=== PATIENT | male | born 1940 | race Hispanic/Latino ===

== ENCOUNTER 2017-10-19 12:19 | Day surgery (SDC) | payer MEDICARE ==
--- NOTE | 2017-10-17 15:49 | EKG ---
Test Date: 2017-10-17 Test Time: 14:45:35 Public Address System Operator: MEG MEASUREMENT RESULTS: Intervals: Rate: 47 [place]: 226 QRSD: 116 QT: 442 QTc: 391 [place]: P: 46 [place]: 226 QRS: -28 T: 54 INTERPRETIVE STATEMENTS: Marked sinus bradycardia with 1st degree AV block Left ventricular hypertrophy with QRS widening Nonspecific T wave abnormality Abnormal ECG Compared to ECG 01/09/2011 09:23:54 Ventricular premature complex(es) no longer present Left-axis deviation no longer present T-wave abnormality still present Electronically Signed On 10-17-17 15:48:41 CDT by Fortunato Fung
[2017-10-19] MEDS ORDERED: BOTU TOX TYPE A 100 UNIT/VIAL ID ONE (12:20)
[2017-10-19] MEDS ORDERED: NA CHLORIDE 0.9% 1,000 ML ONE (12:49)
[2017-10-19] MEDS ORDERED: MIDAZOLAM HCL 2 MG/2 ML INJ ONE (12:49)
[2017-10-19] MEDS ORDERED: LIDOCAINE 1% MPF 5 ML VIAL ONE (12:49)
[2017-10-19] MEDS ORDERED: FENTANYL CITR 100 MCG/2 ML ONE (12:49)
[2017-10-19] MEDS ORDERED: PROPOFOL 200 MG/20 ML VIAL IV ONE (12:49)
[2017-10-19] MEDS ORDERED: EPINEPHRINE/PF 1 MG/ML AMP ONE (13:31)
[2017-10-19] MEDS ORDERED: LIDOCAINE 1% W/EPI 1:100,000 MDV 50 ML VIAL ONE (13:31)
[2017-10-19] MEDS ORDERED: OXYMETAZOLINE HCL 0.05% 30ML NAS ONE (13:56)
[2017-10-19] MEDS ORDERED: ROCURONIUM 50 MG/5 ML VIAL IV ONE (14:37)
[2017-10-19] MEDS ORDERED: NS 0.9% VIAL 10 ML ONE (14:50)
[2017-10-19] MEDS ORDERED: SUCCINYLCHOLINE 20 MG/ML (10 ML) IV ONE (15:09)
--- NOTE | 2017-10-19 18:06 | P.BOP ---
Preoperative diagnosis: Cp spasm, dysphasia Postoperative diagnosis: same Primary procedure: Esophagoscopy with injection of Botox Portfolio Administrator: NONE,NONE Estimated blood loss: nil Specimen: none Anesthesia: General Complications: None Transferred to: Recovery Room Condition: Good
--- NOTE | 2017-10-20 00:45 | OP ---
Date of Procedure: 10/19/2017 Surgeon: Crystal Chambers MD Preoperative Diagnosis: Dysphagia, cricopharyngeal spasm. Postoperative Diagnosis: Dysphagia, cricopharyngeal spasm. Procedure: Rigid esophagoscopy with injection of botulinum toxin to the cricopharyngeus muscle. Indication For Procedure: Mr. Wood is a 77-year-old who presented with difficulty swallowing, which was worse with solids, especially meat and corn tortillas, which has been persistent over the last 3 years. He has a history of a procedure with the GI, but the details were not available, and the patient was referred to ENT for. Swallow study was ordered and showed suspicion for cricopharyngeal spasm. The risks, benefits, and alternatives to the procedure were discussed with the patient who agreed to proceed. Description Of Procedure: The patient was brought to the operating room. He was placed under general anesthesia via oral endotracheal tube. A tooth guard was placed and the oral cavity was inspected. He had multiple caps on his mandibular teeth and his mandible was edentulous. A tooth guard was placed and a Alejandro-Berci laryngoscope was used to perform a laryngoscopy. The length of the laryngoscope was insufficient to reach the area of the cricopharyngeus and this was exchanged for a rigid cervical eosphagoscope. The eosphagoscope was carefully passed under direct visualization into the esophagus. There were copious secretions in the esophagus, which were suctioned and the eosphagoscope was slowly withdrawn examining the esophageal mucosa, which was moderately irritated in appearance. The eosphagoscope was withdrawn and the botulinum toxin was diluted in the following manner: 100 unit vial of onabotulinum toxin A lot number [id number]. Expiration date 04/2020 was diluted with 1.4 mL of sterile saline yielding a dilution of 7 units per 0.1 mL. Then, 1 mL of the solution was drawn up in a 1 cc syringe and attached to cystoscopy, a Gurinder Cystologic injection catheter. The lumen of the needle was filled with 0.4 mL of the solution. The eosphagoscope was again passed through the patient's mouth and into the esophageal introitus under direct visualization. The prominent cricopharyngeus muscle was identified. The needle was placed in the 6 o'clock position and 0.1 mL were injected into the submucosal tissues. The needle was then repositioned and additional injections were given at 5 and 7 o'clock positions. The needle was then withdrawn. There was minimal bleeding noted. The eosphagoscope was withdrawn. The tooth guard was removed, and the patient was returned to care of Anesthesia for awakening and extubation in the operating room, which proceeded without difficulty. Complications: None. Postoperative Plan: The patient will be discharged home later today in the care of his family and follow up with Dr. Chambers in approximately 1-2 weeks for re-evaluation. SARA Voice ID: [id number] Report ID: [id number] ANGELA
== END 2017-10-19 16:45 | disposition home or self-care (01) ==
LOC: OR 12:19
PROVIDERS: ATTEND Otolaryngology
PROC: 3E0G8GC Introduction of Other Therapeutic Substance into Upper GI, Via Natural or Artificial Opening Endoscopic (ICD-10-PCS; principal; 2017-10-19 13:30)
DX: R13.10 Dysphagia, unspecified (principal); J39.2 Other diseases of pharynx; I10 Essential (primary) hypertension; E11.9 Type 2 diabetes mellitus without complications; E07.9 Disorder of thyroid, unspecified
CPT/HCPCS: 43192; 82962 ×2; 93005; J0330; J0585; J2250; J3010; J7030; J0171

== ENCOUNTER 2017-10-26 | Emergency (ER) | payer MEDICARE ==
--- OUTSIDE RECORDS SUMMARY | 2017-10-26 14:56 | XMS REPORT ---
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 lumbosacral intervertebral disc Problem Diabetes E11.9 Active Problem Benign essential HTN I10 Active Problem Controlled type 2 diabetes mellitus E11.9 Active without complication, without long-term current use of insulin Problem Cataract H26.9 Active Problem DJD (degenerative joint disease) M19.90 Active Problem Sexual dysfunction R37 Active Problem Fatty liver K76.0 Active Problem Benign esophageal stricture K22.2 Active Problem Annual physical exam Z00.00 Active Problem Abnormal barium swallow R93.3 Active Problem 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
--- NOTE | 2017-10-26 16:31 | EDPHYS ---
Physician Documentation [facility] Name: Maxim Wood Age: 77 yrs Sex: Male : 1940 Arrival Date: 10/26/2017 Time: 14:59 Bed DIS1 Private MD: ED Physician Tom Drake HPI: 10/26 16:05 This 77 yrs old Male presents to ER via Wheelchair with complaints of wa Difficulty Swallowing. 16:05 The patient presents with dysphagia, of solids, of both solids and liquids, c/o wa difficulty swallowing x 8 days. had a procedure 3 days ago by ENT faviola Chambers but now worse. had swallow study today. sent to ED due to abnml study for further eval. Onset: The symptoms/episode began/occurred 8 day(s) ago. Severity of symptoms: At their worst the symptoms were moderate, in the emergency department the symptoms are unchanged. Associated signs and symptoms: The patient has no apparent associated signs or symptoms. The patient has not experienced similar symptoms in the past. The patient has been recently seen by a physician: Dr. Chambers. Historical: - Allergies: 15:12 No Known Allergies; la1 - PMHx: 15:12 Diabetes - NIDDM; Hypertension; High Cholesterol; la1 - Immunization history:: Adult Immunizations up to date. - Social history:: Smoking status: Patient/guardian denies using tobacco. - Family history:: not pertinent. - Hospitalizations: : No recent hospitalization is reported. - History obtained from: daughter. ROS: 16:20 Constitutional: Negative for fever, chills, and weight loss, Eyes: Negative for injury, wa pain, redness, and discharge, Neck: Negative for injury, pain, and swelling, Cardiovascular: Negative for chest pain, palpitations, and edema, Respiratory: Negative for shortness of breath, cough, wheezing, and pleuritic chest pain, Abdomen/GI: Negative for abdominal pain, nausea, vomiting, diarrhea, and constipation, Back: Negative for injury and pain, : Negative for injury, bleeding, discharge, and swelling, MS/Extremity: Negative for injury and deformity, Skin: Negative for injury, rash, and discoloration, Neuro: Negative for headache, weakness, numbness, tingling, and seizure. 16:20 ENT: Positive for difficulty swallowing. 16:20 All other systems are negative. Exam: 16:21 Constitutional: This is a well developed, well nourished patient who is awake, alert, wa and in no acute distress. Head/Face: Normocephalic, atraumatic. Eyes: Pupils equal round and reactive to light, extra-ocular motions intact. Lids and lashes normal. Conjunctiva and sclera are non-icteric and not injected. Cornea within normal limits. Periorbital areas with no swelling, redness, or edema. Neck: Trachea midline, no thyromegaly or masses palpated, and no cervical lymphadenopathy. Supple, full range of motion without nuchal rigidity, or vertebral point tenderness. No Meningismus. Cardiovascular: Regular rate and rhythm with a normal S1 and S2. No gallops, murmurs, or rubs. Normal PMI, no JVD. No pulse deficits. Respiratory: Lungs have equal breath sounds bilaterally, clear to auscultation and percussion. No rales, rhonchi or wheezes noted. No increased work of breathing, no retractions or nasal flaring. Abdomen/GI: Soft, non-tender, with normal bowel sounds. No distension or tympany. No guarding or rebound. No evidence of tenderness throughout. Back: No spinal tenderness. No costovertebral tenderness. Full range of motion. Skin: Warm, dry with normal turgor. Normal color with no rashes, no lesions, and no evidence of cellulitis. MS/ Extremity: Pulses equal, no cyanosis. Neurovascular intact. Full, normal range of motion. Neuro: Awake and alert, GCS 15, oriented to person, place, time, and situation. Cranial nerves II-XII grossly intact. Motor strength 5/5 in all extremities. Sensory grossly intact. Cerebellar exam normal. Normal gait. 16:26 ENT: Mouth: is normal, Posterior pharynx: is normal. oh Vital Signs: 15:12 BP 155 / 77; Pulse 62; Resp 16; Temp 98.6(O); Pulse Ox 100% on R/A; Weight 77.11 kg (R);la1 MDM: 15:13 Patient medically screened. oh 16:26 Differential diagnosis: dysphagia. swallow study shows significantly reduced opening of wa the upper esophageal sphincter with decrease epiglottic inversion. 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 Data reviewed: vital signs, nurses notes. Special discussion: Dr. Chambers saw pt in ED. offered pt and family a feeding tube. pt and family adamantly refused. they stated they want to go see Dr. Copeland (GI) for second opinion. Discussed return for worsening symptom immediately. pt was able to swallow water in ED on my assessment, although with mild difficulty. Administered Medications: No medications were administered Disposition: 10/26/17 16:31 Discharged to Home. Impression: Dysphagia. - Condition is Stable. - Discharge Instructions: Dysphagia. - Medication Reconciliation Form, Thank You Letter, Antibiotic Education, Prescription Opioid Use form. - Follow up: Festus Quinteros MD; When: 1 - 2 days; Reason: Recheck today's complaints. Follow up: Crystal Chambers MD; When: 1 - 2 days; Reason: Recheck today's complaints. - Notes: follow up with Dr. Chambers and Dr. Copeland as discussed. please thin his meals considerably to help him get it down. return immediately for worsening, including complete inability to swallow Signatures: Marlyn Fairchild, RN RN iw Benjie Mcdaniel RN RN la1 Tom Drake MD MD wa
--- NOTE | 2017-10-26 16:31 | ER ---
Nurse's Notes [facility] Name: Maxim Wood Age: 77 yrs Sex: Male : 1940 Arrival Date: 10/26/2017 Time: 14:59 Bed DIS1 Private MD: Diagnosis: Dysphagia Presentation: 10/26 15:10 Presenting complaint: Child states: He has been having trouble swallowing for around 2 la1 years, on Sunday he had botox in the back of his throat from Dr Chambers and today he had a F/U swallow screen and the person who did the test said he was not swallowing at all and he was at risk of getting food in his lungs. Transition of care: patient was not received from another setting of care. Onset of symptoms was October 26, 2017. Care prior to arrival: None. 15:10 Method Of Arrival: Wheelchair la1 15:10 Acuity: ANALIA 3 la1 Historical: - Allergies: 15:12 No Known Allergies; la1 - PMHx: 15:12 Diabetes - NIDDM; Hypertension; High Cholesterol; la1 - Immunization history:: Adult Immunizations up to date. - Social history:: Smoking status: Patient/guardian denies using tobacco. - Family history:: not pertinent. - Hospitalizations: : No recent hospitalization is reported. - History obtained from: daughter. Screenin:12 Abuse screen: Denies threats or abuse. Denies injuries from another. Nutritional sv screening: No deficits noted. Tuberculosis screening: No symptoms or risk factors identified. Fall Risk None identified. Assessment: 15:12 General: Appears in no apparent distress. comfortable, Behavior is calm, cooperative, sv appropriate for age. Pain: Denies pain. Neuro: Level of Consciousness is awake, alert, obeys commands, Oriented to person, place, time, situation, Moves all extremities. Full function. Respiratory: Respiratory effort is even, unlabored, Respiratory pattern is regular, symmetrical. EENT: Parent/caregiver reports the patient having difficulty swallowing. Derm: Skin is normal. 15:31 Reassessment: Dr. Chambers notified via telephone, speaking with Dr. Drake. iw Vital Signs: 15:12 BP 155 / 77; Pulse 62; Resp 16; Temp 98.6(O); Pulse Ox 100% on R/A; Weight 77.11 kg (R);la1 ED Course: 14:59 Patient arrived in ED. mr 15:12 Triage completed. la1 15:12 Arm band placed on left wrist. la1 15:12 Patient has correct armband on for positive identification. Bed in low position. Call sv light in reach. Adult w/ patient. 15:13 Tom Drake MD is Attending Physician. wa 15:45 Crystal Liang, CRUZ is Primary Nurse. sv 16:30 Festus Quinteros MD is Referral Physician. wa 16:30 Crystal Chambers MD is Referral Physician. wa 16:36 No provider procedures requiring assistance completed. Patient did not have IV access sv during this emergency room visit. Administered Medications: No medications were administered Outcome: 16:31 Discharge ordered by . 16:31 Discharged to home pt left before discharge paperwork sv 16:36 Patient left the ED. iw Signatures: Crystal Liang, Shereen Lux RN Marlyn Fairchild RN RN Benjie Mcdaniel RN RN [facility] Tom Drake MD MD id
--- NOTE | 2017-11-03 21:07 | CON ---
Date of Consultation: 10/26/2017 Chief Complaint: Difficulty swallowing. History Of Present Illness: Mr. Wood is a 77-year-old male known to me through my outpatient pract ice. He has a greater than 3-year history of dysphagia and approximately 1 week prior to this presen tation, he underwent esophagoscopy with injection of Botox to the cricopharyngeus muscle. He continu ed to have dysphagia, which was felt by the family to be worsening and presented to the clinic where an urgent modified barium swallow was ordered. The modified barium swallow was performed by the [facility] pathologist Ms. Dalia Becker earlier on the and I spoke with her regarding the results with i ntent to contact the patient and his family. Before I was able to do so due to other clinical respon sibilities, the patient presented to the emergency room with his daughters and I was consulted by the emergency room physician to address the patient's dysphagia. The patient and his family report that he has continued to have difficulty swallowing, which has been severe in nature, although he was not ed by the emergency room staff to tolerate sips of water without coughing or choking. The family sha red new information regarding his history including a previous neurology evaluation approximately 3 y ears ago, which was ordered due to concerns for progressive weakness. The patient's daughter states that he was seen by Dr. Garcia and there were some concerns for ALS and that [facility] [place]. He underwent more extensive testing there, but was not given a diagnosis of ALS at the time. The family and patient are uncertain of what diagnosis was given, but no specific medical therapy was initiated. Since that time the patient has undergone multiple procedures for swallowing difficulties including EGD and stretching x2 with Dr. Quinteros as well as rigid esophagoscopy with i njection of Botox to the cricopharyngeus by me approximately 7 days prior to this evaluation. The fa thelma notes other symptoms of weakness including poor activity tolerance and slowly progressive relian ce on using a cane to aid in balance and endurance on walking. There are no notable changes in his s peaking abilities and they have not returned to the neurologist since his initial evaluation about 3 years ago. Physical Examination: The patient is in no acute distress. His vital signs are normal. He is sitting comfortably in the ospital room, dressed in his street clothes. He is tolerating his secretions. He speaks primarily i n Niuean, but his words do not sound slurred or dysarthric to my ear. He is easily understood in Sp oziel by his daughters who assist in translation. Review Of Data: I reviewed the images from the modified barium swallow prior to meeting the patient in the emergency room. In comparison of prior barium swallow images, the posterior bulge of the cric opharyngeus appears significantly improved compared to initial exam which I suspect a result of his r ecent botulinum toxin injection. There is persistent severe pooling in the vallecula and piriform si nuses, which has not improved in comparing the 2 studies and he continues to have esophageal stasis a nd poor progression of peristalsis noted. The formal speech pathologist report was not available at the time of my initial discussion with the patient in the emergency room, but was later reviewed. Assessment And Plan: Severe oropharyngeal and esophageal dysphagia, progressive and recalcitrant to multiple therapies by GI and ENT physician. Based on the patient's history, it is unclear to me whet her a true diagnosis of ALS was ever given were warranted, but given his continued progression over t he last 3 years, I think it is reasonable to revisit with the neurologist on an outpatient basis for further assessment. We discussed that some conditions can be difficult to diagnose early presentatio n and become more apparent as the clinical course develops. The patient and his daughters appear fru strated about his lack of improvement of his dysphagia. I did discuss with them the speech pathologi st's recommendation for alternative methods of nutrition. The patient is strongly opposed to proceed ing to placement, though the exact reasons for referral are not clear to me at this time. The daught ers appear willing to consider enteral nutrition, but the patient being currently of sound mind and a utonomous in decision making is not interested in discussing any further information regarding feedin g tube placement. At this time, there is no urgent need for hospitalization noted, especially in lig ht of the patient's refusal feeding tube placement. The family expresses interest in re-visiting wit the circle edger, which I encouraged them to do. In review of my clinic note, it appears madeleine t the circle edger felt like available interventions from his perspective had been completed an d were ineffective in improving his dysphagia and he was deferring further treatment to me but the safia renee is welcome to visit with him again regarding other options. I encouraged him again to meet with the neurologist regarding further assessment of his possibly progressive neurologic condition and th ey can follow up with me on an as-needed basis. RICHIE/ARACELY Voice ID: [id number] Report ID: [id number]
== END 2017-10-26 16:36 | disposition home or self-care (01) ==
DX: R13.10 Dysphagia, unspecified (principal)
CPT/HCPCS: 74230; 92611; 99281; G8996; G8997; G8998